=== PATIENT | female | born 1925 | race Caucasian/White ===

== ENCOUNTER 2016-07-18 11:09 | Emergency (ER) | payer OTHER, MEDICARE ==
[~2016-07-18 11:09] MED LIST: ALPRAZOLAM0.5 MG PO; CELEXA20 MG PO; FUROSEMIDE40 M1 PO; IMODIUM2 MG PO; LEVSIN/SL0.125 MG SL; METOPROLOL TART50 MG PO; NASONEX0.05 MG/Ac NASB; PRESERVISION L1 EACH PO; RISPERIDONE0.5 MG PO; SINGULAIR10 MG PO; SYMBICORT 160/41 PUF INH; TELMISARTAN80 MG PO; ZETIA10 MG PO; ZOCOR 40MG TAB40 MG PO; ZOFRAN4 M1 SL
--- NOTE | 2016-07-18 11:22 | ED AMS/SEIZURE/WEAK/DIZZY ---
History of Present Illness General Chief Complaint: General Adult Stated Complaint: TREMORS AND CONFUSION Source: patient, family, old records Exam Limitations: no limitations Allergies Coded Allergies: naproxen (ANAPHYLAXIS 10/19/15) Reconcile Medications Alprazolam 0.5 MG TAB 0.25 MG PO BID ANXIETY (Reported) Budesonide/Formoterol Fumara (Symbicort 160-4.5 Mcg Inhaler) 160 MCG/4.5 MCG PUF 2 PUF INH BID ALLERGIES (Reported) Citalopram Hydrobromide (Celexa) 20 MG TAB 1 TAB PO DAILY MENTAL HEALTH ( Reported) Ezetimibe (Zetia) 10 MG TAB 1 TAB PO DAILY CHOLESTEROL (Reported) Furosemide 40 MG TABLET 1 TAB PO EOD WATER PILL (Reported) Metoprolol Tartrate 50 MG TAB 1 TAB PO BID BP (Reported) Mometasone Furoate (Nasonex) 0.05 MG/Actuation SPR 2 SPRAY NASB DAILY ALLERGIES (Reported) Montelukast Sodium (Singulair) 10 MG TAB 1 TAB PO DAILY ALLERGIES (Reported) Risperidone 0.5 MG TAB 1 TAB PO QPM SLEEP (Reported) Simvastatin (Zocor 40MG Tab) 40 MG TAB 1 TAB PO QPM CHOLESTEROL (Reported) Telmisartan 80 MG TAB 1 TAB PO DAILY BP (Reported) Vit C/Anthony AC/Lut/Copper/Znox (Preservision Lutein Softgel) 1 EACH CAPSULE 1 CAP PO BID MACULAR DEGENERATION (Reported) Triage Note: PT BIBA FROM HOME FOR TREMORS AND CONFUSION. PT HAS BEEN RECEVING OCCUPATIONAL THERPAY AT HOME FOR LEG WEAKNESS WITH UNKNOWN ORIGIN. TODAY OCCUPATIONAL THERAPY WAS SUPPOSE TO HELP PT SHOWER BUT PT BEGAN TO HAVE LEG TREMORS. PER FAMILY PT WAS ALSO CONFUSED. EMS STATES THAT THERAPIST NOTED PT TO BE HYPERTENSIVE ON THEIR ARRIVAL BUT PT HAD NOT TAKEN AM MEDS, AFTER MEDS WERE GIVEN BY FAMILY PRIOR TO EMS ARRIVAL, PT WAS NORMAL TENSIVE FOR EMS. ON ARRIVAL IN ER PT BP 173/72. PT C/O OF LEG WEAKNESS ON ARRIVAL. PT ALERT BUT HAS PERIODS OF CONFUSION Triage Nurses Notes Reviewed? yes Onset: Gradual Duration: day(s): (1), better, constant Timing: recent history Injury Environment: home Severity: mild, moderate Severity Numbers: 5 No Modifying Factors: none Associated Symptoms: DENIES HPI: 89-year-old female presents brought in by ambulance with family for evaluation after the patient was noted to be tremulous and confused more so than normal this morning. The patient's family states that she did not take her blood pressure medication this morning however on EMS arrival she was 173/72. She was given her medications prior to arrival by her [id number]. On arrival the patient is alert and oriented times to baseline per family. The patient has a history of known leg weakness and pain for which she receives physical therapy and occupational therapy 3 times a week they came today and advised her to come to the ER. There's been no recent fall or trauma no chest pain or shortness of breath. The patient denies any complaints at this time no leg edema no rashes no fever no chills. Her [id number] states she does have your history of urinary infections. The patient denies any urinary complaints (CATHY TRIPP) Vital Signs & Intake/Output Vital Signs & Intake/Output Vital Signs Date Time Temp Pulse Resp B/P Pulse O2 O2 Flow FiO2 Ox Delivery Rate 07/18 1453 98.8 63 18 156/69 100 07/18 1327 96 07/18 1258 98.1 57 18 165/72 96 Room Air 07/18 1119 98.0 64 20 173/72 100 Room Air Past History Travel History Traveled to [place] past 21 day No Medical History Any Pertinent Medical History? 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 No (CATHY TRIPP) Review of Systems Review of Systems Constitutional: Reports: see HPI. All Other Systems: Reviewed and Negative Comments Review of systems: See HPI, All other systems negative. Constitutional, no chills no fever, no malaise HEENT: No visual changes no sore throat no congestion Cardiovascular: No chest pain , no palpitation Skin, no rashes, no change in skin Respiratory: No dyspnea no cough no sputum GI: No nausea no vomiting, no diarrhea, : No dysuria Muscle skeletal: No joint pain, no joint swelling, no back pain, no neck pain, Neurologic: No numbness no headache Psych: No stress n Heme/endocrine: No bruising no bleeding Immunology: No lymphadenopathy (LUZ PAZ,CATHY) Physical Exam Physical Exam General Appearance: well developed/nourished, alert, awake Comments: Well-developed well-nourished person in no acute distress HEENT: Normal EENT exam; PERRL, EOMI, HEAD is atraumatic. moist mucous membranes. Neck: Supple, normal range of motion Back: Nontender, no CVA tenderness. Full range of motion Cardiovascular: Regular rate and rhythms no murmurs rubs Respiratory: Chest nontender.There were no bony deformities, no asymmetry. No respiratory distress. Patient speaking in full complete sentences. Breath sounds clear to auscultation bilaterally: NO W/R/R Abdomen: Soft, nontender nondistended, no appreciable organomegaly. Normal bowel sounds. No rebound/guarding, Extremity: No edema, full range of motion of extremities, normal and equal pulses bilaterally, 5 out of 5 strength noted to bilateral upper and lower extremities Neuro: Alert oriented x2, motor sensory normal, cranial nerves II through XII grossly intact. There were no obvious focal neurologic abnormalities. Skin: No appreciable rash on exposed skin, skin is warm and dry. Psych: Mood and affect is normal, memory and judgment is normal. Core Measures ACS in differential dx? Yes CVA/TIA Diagnosis: No Severe Sepsis Present: No Septic Shock Present: No (CATHY TRIPP) Progress Differential Diagnosis: arrythmia, anemia, benign positional vertigo, CVA/stroke , dehydration, drug intoxication, electrolyte imbalance, GI bleed, hypoglycemia, hypoxia, intracranial Hem., intracranial mass/tumor, presyncope, seizure disorder, UTI/pyelo, vertebrobasilar insuff Diagnostic Imaging: Viewed by Me: CT Scan. Discussed w/RAD: CT Scan. Radiology Impression: PATIENT: RAUDEL GORDILLO PRESENT AGE: 89 PATIENT ACCOUNT NO: [id number] : [birth year] LOCATION: [facility] ORDERING PHYSICIAN: CATHY PAZ SERVICE DATE: 07/18/161130 EXAM TYPE: CAT - CT HEAD WO IV CONTRAST EXAMINATION: CT HEAD WITHOUT CONTRAST CLINICAL INFORMATION: Weakness. COMPARISON: CT brain 8 10/19/2015. TECHNIQUE: Contiguous axial imaging was performed from the skull base to vertex without intravenous administration of contrast. DLP: 529 mGy-cm. FINDINGS: There is no evidence of acute intracranial hemorrhage or territorial infarction. No abnormal mass effect or midline shift is seen. Garrett to white matter differentiation is well preserved. No extra-axial fluid collections are identified. The lateral ventricles are enlarged and so other cortical sulci. There is diffuse periventricular hypodensity suggestive of chronic small vessel ischemic changes. The osseous structures and soft tissues are normal. The mastoid air cells and visualized portions of the paranasal sinuses are well aerated. IMPRESSION: No acute intracranial process seen. 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 No major change from 10/19/2015. DICTATED BY: CAMMIE HINOJOSA, THAD DATE/TIME DICTATED:07/18/161224 SHOE STITCHER ODD:DELMI DATE/TIME TRANSCRIBED:07/18/161224 CONFIDENTIAL, DO NOT COPY WITHOUT APPROPRIATE AUTHORIZATION. <Electronically signed in Other Vendor System> SIGNED BY: CAMMIE HINOJOSA,THAD 07/18/16 1231 Initial ED EKG: NORMAL SINUS AT 60, NO ACUTE st SEGMENT CHANGES NORMAL AXIS Rhythm Strip: normal sinus rhythm (CATHY TRIPP) Plan of Care: Orders Procedure Date/time Status Regular Diet 07/18 D Active Telemetry/Licensed Embalmer 07/18 1130 Active FingerStick- Glucose 07/18 1130 Active URINE DRUG SCREEN FOR ER ONLY 07/18 1130 Complete URINALYSIS 07/18 1130 Complete TROPONIN LEVEL 07/18 1130 Complete COMPREHENSIVE METABOLIC PANEL 07/18 1130 Complete CBC WITHOUT DIFFERENTIAL 07/18 1130 Complete EKG 07/18 1130 Active Laboratory Tests 07/18/16 1157: Anion Gap 14, Estimated GFR 35 L, BUN/Creatinine Ratio 25.7 H, Glucose 223 H, Calcium 9.2, Total Bilirubin 0.7, AST 29, ALT 35, Alkaline Phosphatase 91, Troponin I < 0.01, Total Protein 6.9, Albumin 3.8, Globulin 3.1, Albumin/ Globulin Ratio 1.2, CBC w Diff NO MAN DIFF REQ, RBC 3.89 L, MCV 87.5, MCH 29.5, RDW 13.2, MPV 7.9, Gran % 69.7, Lymphocytes % 19.2 L, Monocytes % 7.9, Eosinophils % 2.7, Basophils % 0.5, Absolute Granulocytes 4.1, Absolute Lymphocytes 1.1 L, Absolute Monocytes 0.5, Absolute Eosinophils 0.2, Absolute Basophils 0, PUBS MCHC 33.7, Urine Opiates Screen < 100.00, Methadone Screen 41, Barbiturate Screen < 60, Ur Phencyclidine Scrn < 6.00, Amphetamines Screen < 100 , U Benzodiazepines Scrn 97, Urine Cocaine Screen < 50, Urine Cannabis Screen < 5.00 07/18/16 1150: Urine Color YEL, Urine Clarity CLEAR, Urine pH 6.5, Ur Specific [place] 1.010, Urine Protein NEG, Urine Ketones NEG, Urine Nitrite NEG, Urine Bilirubin NEG, Urine Urobilinogen 0.2, Ur Leukocyte Esterase NEG, Ur Microscopic EXAM NOT REQUIRED, Urine Hemoglobin NEG, Urine Glucose NEG Labs ordered old records reviewed Case discussed with Dr. Solomon. Discussed with the patient and her daughter-in- law all for lab results creatinine of 1.4 his baseline according to old records. UA is clear patient slightly tremulous ambulatory with Walker with nursing. Discussed that her CAT scan results are intact. She states she did have waffles for breakfast prior to arrival to explain her elevated blood sugar. 07/18/2016 2:03:14 PM on repeat evaluation patient is ambulatory around the emergency room with her walker when she is at baseline by herself completely independent nursing was at her side however patient was able to get up and get back into bed without any issues or complaints patient clinically appears well and not tremulous Denver Solomon MD evaluated the patient agrees with plan. Case management at bedside since family is declining any increase in services. Repeat evaluation patient remains normotensive she will follow up with her primary care physician tomorrow they will return anytime sooner with any concerns. I discussed with the patient at length all of their results, need for close follow up with their primary care physician. This week. I answered all of their questions, they feel comfortable with the plan and follow-up care. (CATHY TRIPP) Departure Departure Time of Disposition: 1456 Disposition: HOME OR SELF CARE Condition: Stable Clinical Impression Primary Impression: Weakness Referrals: KAREN GARCIA MD (PCP/Family) Additional Instructions: Follow-up with her primary care physician tomorrow. Return anytime sooner with any concerns Departure Forms: Customer Survey General Discharge Information (CATHY TRIPP) PA/TRACK LAYING EQUIPMENT OPERATOR Co-Sign Statement Statement: ED Attending supervision documentation- [X] I saw and evaluated the patient. I have also reviewed all the pertinent lab results and diagnostic results. I agree with the findings and the plan of care as documented in the PA's/TRACK LAYING EQUIPMENT OPERATOR's documentation. [] I have reviewed the ED Record and agree with the PA's/TRACK LAYING EQUIPMENT OPERATOR's documentation. [] Additions or exceptions (if any) to the PAs/TRACK LAYING EQUIPMENT OPERATOR's note and plan are summarized below: [] (ROBBIE HINOJOSA,DENVER Araiza)
[2016-07-18 12:08] LABS: ABSOLUTE BASOPHIL COUNT 0 /CUMM (0.0-0.2); ABSOLUTE EOSINOPHIL COUNT 0.2 /CUMM (0.0-0.7); ABSOLUTE GRANULOCYTE CT 4.1 /CUMM (1.4-6.5); ABSOLUTE LYMPH COUNT 1.1 /CUMM (1.2-3.4); ABSOLUTE MONOCYTE COUNT 0.5 /CUMM (0.10-0.60); BASOPHIL % 0.5 % (0.0-2.0); EOSINOPHIL % 2.7 % (0-5); GRANULOCYTE % 69.7 % (42.2-75.2); MEAN CORPUSCULAR HGB 29.5 PG (27.0-31.0); MEAN CORPUSCULAR HGB CONC 33.7 G/DL (33.0-37.0); MEAN CORPUSCULAR VOLUME 87.5 FL (81.0-99.0); MEAN PLATELET VOLUME 7.9 FL (7.4-10.4); PLATELET COUNT 240 /CUMM (130-400); RBC DISTRIBUTION WIDTH 13.2 % (11.5-14.5); RED BLOOD CELL CT 3.89 /CUMM (4.20-5.40); WHITE BLOOD CELL COUNT 5.9 /CUMM (4.8-10.8)
--- NOTE | 2016-07-18 12:31 | CT SCAN REPORT ---
EXAMINATION: CT HEAD WITHOUT CONTRAST CLINICAL INFORMATION: Weakness. COMPARISON: CT brain 8 10/19/2015. TECHNIQUE: Contiguous axial imaging was performed from the skull base to vertex without intravenous administration of contrast. DLP: 529 mGy-cm. FINDINGS: There is no evidence of acute intracranial hemorrhage or territorial infarction. No abnormal mass effect or midline shift is seen. Garrett to white matter differentiation is well preserved. No extra-axial fluid collections are identified. The lateral ventricles are enlarged and so other cortical sulci. There is diffuse periventricular hypodensity suggestive of chronic small vessel ischemic changes. The osseous structures and soft tissues are normal. The mastoid air cells and visualized portions of the paranasal sinuses are well aerated. IMPRESSION: No acute intracranial process seen. 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 No major change from 10/19/2015.
[2016-07-18 14:53] VITALS: BP 156/69
== END 2016-07-18 15:24 ==
LOC: ERH 11:09
PROVIDERS: Physician Assistant Medical
DX: R53.1 Weakness (principal); I10 Essential (primary) hypertension; E11.9 Type 2 diabetes mellitus without complications; R25.1 Tremor, unspecified
CPT/HCPCS: 80307; 81003; 93005; 93010; 96360